=== PATIENT | female | born 1985 | race African-American/Black ===

== ENCOUNTER 2018-09-06 12:23 | Emergency (ER) | payer OTHER ==
[~2018-09-06] VITALS: Ht 167.6 cm; Wt 136.1 kg
[~2018-09-06 12:23] MED LIST: APAP/CODEINE ELI5 M1 OR; BIRTH CONTROL; CODEINE-GUAIFE473 M1 PO; FAMOTIDINE PO; FLEXERIL PO; IBUPROFEN 600600 M1 PO; IBUPROFEN 800800 M1 PO; IBUPROFEN 800800 MG PO; LOTRISONE CREAM15 GM TP; NOHOMEMEDICATIONS; NORCO 5-325 TA1 EACH PO; PEPCID20 MG PO; PEPCID40 MG PO; PROVENTIL HFA6.7 G1 INH; TRAMADOL 50 MG50 MG PO; TRIAMCINOLONE A15 G1 TP; TRIAMCINOLONE A15 G2 TP; ULTRAM 50MG TAB50 MG PO; ZANTAC 150MG T150 M1 PO; ZOFRAN ODT4 MG PO; ZPAK PO
[2018-09-06] MEDS ORDERED: TRAMADOL 50 MG50 MG PO (14:16)
[2018-09-06] MEDS ORDERED: NORFLEX100 MG PO (14:16)
[2018-09-06 14:24] VITALS: BP 129/77
== END 2018-09-06 14:25 | disposition home or self-care (01) ==
LOC: ER 12:23
DX: S29.012A Strain of muscle and tendon of back wall of thorax, initial encounter (principal); X58.XXXA Exposure to other specified factors, initial encounter; Y93.89 Activity, other specified; Y92.89 Other specified places as the place of occurrence of the external cause; Y99.8 Other external cause status

== ENCOUNTER 2019-10-08 02:22 | Emergency (ER) | payer BC, OTHER ==
[~2019-10-08] VITALS: Ht 167.6 cm; Wt 127.0 kg
[~2019-10-08 02:22] MED LIST changes: +NORFLEX100 MG PO
[2019-10-08] MEDS ORDERED: IBUPROFEN 800800 M1 PO (02:38)
[2019-10-08] MEDS ORDERED: MUCINEX600 MG PO (02:39)
[2019-10-08] MEDS ORDERED: CLARITIN10 M3 PO (02:39)
[2019-10-08 04:17] VITALS: BP 132/82
== END 2019-10-08 04:19 | disposition home or self-care (01) ==
LOC: ER 02:22
DX: B34.9 Viral infection, unspecified (principal)

== ENCOUNTER → 2020-02-23 | Outpatient (CLI) | payer OTHER ==
[~2020-02-23] MED LIST changes: +CLARITIN10 M3 PO; +MUCINEX600 MG PO
== END ==
LOC: RAD 14:32
DX: J06.9 Acute upper respiratory infection, unspecified (principal); R06.00 Dyspnea, unspecified

== ENCOUNTER → 2020-10-24 | Outpatient (CLI) | payer OTHER | LOC: ULTRA 10:36 | PROVIDERS: ATTEND Family Medicine | DX: N63.20 Unspecified lump in the left breast, unspecified quadrant (principal) ==